=== PATIENT | male | born 1955 | race Caucasian/White ===

== ENCOUNTER → 2017-05-22 | Outpatient (CLI) | payer MEDICARE | LOC: GOCC 20:43 | PROVIDERS: ATTEND Internal Medicine | DX: D64.9 Anemia, unspecified (principal) ==

== ENCOUNTER 2017-05-26 07:58 | Emergency (ER) | payer MEDICARE ==
--- NOTE | 2017-05-26 08:13 | ED.PDOC ---
History of Present Illness - General Chief Complaint: Laceration Stated Complaint: laceration to left lower leg-won't stop bleeding Time Seen by Provider: 05/26/17 08:06 Source: patient, EMS notes reviewed Exam Limitations: no limitations Additional Information: 62 YEAR OLD BROUGHT HERE FOR EVALUATION OF BLEEDING FROM A LACERATION THAT STARTED LAST EVENING AFTER HE BUMPED HIS LEFT LOWER LEG ON THE DOOR WHILE EXITING [place] HE HAS MULTIPLE MEDICAL ISSUES THAT INCLUDES CAD ATRIAL FIBRILLATION ON COUMADIN OXYGEN DEPENDANT COPD HTN PERIPHERAL NEUROPATHY - History of Present Illness Initial Comments: 12 HOURS Improving Factors: nothing Worsening Factors: nothing Associated Symptoms: denies symptoms Allergies/Adverse Reactions: Allergies Lisinopril Allergy (Verified 05/26/17 08:16) Sulfamethoxazole w/Trimethoprim [From Bactrim] Allergy (Verified 05/26/17 08:16) Ticlopidine Allergy (Verified 05/26/17 08:16) Home Medications: Ambulatory Orders Acetaminophen [Tylenol] 325 mg PO Q6H PRN 05/26/17 Allopurinol [Zyloprim] 100 mg PO DAILY 05/26/17 Alum & Mag Hydrox-Simethicone [Maalox Advanced Maximum S 400-400-40 mg/5Ml] 1 donovan PO TID PRN 05/26/17 Amiodarone HCl 200 mg PO DAILY 05/26/17 Atorvastatin Calcium [Lipitor] 40 mg PO BEDTIME 05/26/17 Bisacodyl Suppository 10Mg [Dulcolax Suppository 10mg] 1 ea [place] DAILY PRN Budesonide (Inhalation) [Pulmicort] 0.5 mg IN BID 05/26/17 Carvedilol 3.125 mg PO BID 05/26/17 Chlorhexidine Gluconate (Mouth [Chlorhexidine Gluconate] 0.12 % MT BID 05/26/17 Clonidine HCl 0.1 mg PO BEDTIME 05/26/17 Docusate Sodium 100 mg PO BID PRN 05/26/17 Famotidine 20 mg PO BEDTIME 05/26/17 Ferrous Sulfate 325 mg PO BID 05/26/17 Fluticasone Propionate (Nasal) [Flonase] 2 inh NA DAILY PRN 05/26/17 Folic Acid 1 mg PO DAILY 05/26/17 Furosemide 40 mg PO BID 05/26/17 HYDROcodone 5MG/APAP 325MG [[place] 5/325] 1 - 2 tab PO Q4H PRN 05/26/17 Insulin Lispro (Human) [Humalog] 300 unit SC BEDTIME 05/26/17 Insulin Lispro (Human) [Humalog] 300 unit SC TIDFD 05/26/17 Ipratropium/Albuterol [Duoneb] 3 ml INH Q6H 05/26/17 Levothyroxine Sodium 25 mcg PO DAILY 05/26/17 Melatonin 3 mg PO BEDTIME PRN 05/26/17 Metoprolol Succinate [Metoprolol Succinate ER] 12.5 mg PO DAILY 05/26/17 Multiple Vitamin [Multivitamins] 1 cap PO DAILY 05/26/17 Ondansetron [Ondansetron Odt] 4 mg PO Q4H PRN 05/26/17 Pantoprazole Sodium 40 mg PO DAILY 05/26/17 Phenol Throat [place] [Chloraseptic Throat [place]] 1 - 2 spray MT Q2H PRN 05/26/17 Polyethylene Glycol 3350 [Miralax] 17 gm PO DAILY PRN 05/26/17 Senna/Docusate Tab [Senokot-S] 2 ea PO BID 05/26/17 Sennosides 8.6MG [Senokot] 1 ea PO BID PRN 05/26/17 Tamsulosin [Flomax] 0.4 mg PO DAILY 05/26/17 Thiamine HCl 100 mg PO DAILY 05/26/17 Tramadol HCl 100 mg PO Q6H PRN 05/26/17 Warfarin Sodium [Coumadin] 2.5 mg PO DAILY 05/26/17 Review of Systems - Review of Systems Constitutional: States: no symptoms reported EENTM: States: no symptoms reported Respiratory: States: short of breath Cardiology: States: no symptoms reported Gastrointestinal/Abdominal: States: no symptoms reported Genitourinary: States: no symptoms reported Musculoskeletal: States: no symptoms reported Skin: States: no symptoms reported Neurological: States: no symptoms reported Endocrine: States: no symptoms reported Hematologic/Lymphatic: States: no symptoms reported Family Medical History - Family History Mother Family History: Unknown Physical Exam - Physical Exam General Appearance: Alert Eye Exam: bilateral normal Ears, Nose, Throat: hearing grossly normal, normal ENT inspection, normal pharynx, abnormal TM (R) Neck: non-tender, full range of motion, supple Respiratory: chest non-tender, lungs clear, rhonchi Cardiovascular/Chest: irregularly irregular - 2 + EDEMA Departure - Departure Clinical Impression: Laceration, Anemia Time of Disposition: 09:29 Disposition: Discharge to Home or Self Care Condition: Good Departure Forms: ED Discharge - Pt. Copy, Patient Portal Self Enrollment Instructions: DI for Laceration Repair Activity: increase activity as tolerated Home Medications: Ambulatory Orders Acetaminophen [Tylenol] 325 mg PO Q6H PRN 05/26/17 Allopurinol [Zyloprim] 100 mg PO DAILY 05/26/17 Alum & Mag Hydrox-Simethicone [Maalox Advanced Maximum S 400-400-40 mg/5Ml] 1 donovan PO TID PRN 05/26/17 Amiodarone HCl 200 mg PO DAILY 05/26/17 Atorvastatin Calcium [Lipitor] 40 mg PO BEDTIME 05/26/17 Bisacodyl Suppository 10Mg [Dulcolax Suppository 10mg] 1 ea [place] DAILY PRN Budesonide (Inhalation) [Pulmicort] 0.5 mg IN BID 05/26/17 Carvedilol 3.125 mg PO BID 05/26/17 Chlorhexidine Gluconate (Mouth [Chlorhexidine Gluconate] 0.12 % MT BID 05/26/17 Clonidine HCl 0.1 mg PO BEDTIME 05/26/17 Docusate Sodium 100 mg PO BID PRN 05/26/17 Famotidine 20 mg PO BEDTIME 05/26/17 Ferrous Sulfate 325 mg PO BID 05/26/17 Fluticasone Propionate (Nasal) [Flonase] 2 inh NA DAILY PRN 05/26/17 Folic Acid 1 mg PO DAILY 05/26/17 Furosemide 40 mg PO BID 05/26/17 HYDROcodone 5MG/APAP 325MG [[place] 5/325] 1 - 2 tab PO Q4H PRN 05/26/17 Insulin Lispro (Human) [Humalog] 300 unit SC BEDTIME 05/26/17 Insulin Lispro (Human) [Humalog] 300 unit SC TIDFD 05/26/17 Ipratropium/Albuterol [Duoneb] 3 ml INH Q6H 05/26/17 Levothyroxine Sodium 25 mcg PO DAILY 05/26/17 Melatonin 3 mg PO BEDTIME PRN 05/26/17 Metoprolol Succinate [Metoprolol Succinate ER] 12.5 mg PO DAILY 05/26/17 Multiple Vitamin [Multivitamins] 1 cap PO DAILY 05/26/17 Ondansetron [Ondansetron Odt] 4 mg PO Q4H PRN 05/26/17 Pantoprazole Sodium 40 mg PO DAILY 05/26/17 Phenol Throat [place] [Chloraseptic Throat [place]] 1 - 2 spray MT Q2H PRN 05/26/17 Polyethylene Glycol 3350 [Miralax] 17 gm PO DAILY PRN 05/26/17 Senna/Docusate Tab [Senokot-S] 2 ea PO BID 05/26/17 Sennosides 8.6MG [Senokot] 1 ea PO BID PRN 05/26/17 Tamsulosin [Flomax] 0.4 mg PO DAILY 05/26/17 Thiamine HCl 100 mg PO DAILY 05/26/17 Tramadol HCl 100 mg PO Q6H PRN 05/26/17 Warfarin Sodium [Coumadin] 2.5 mg PO DAILY 05/26/17
[2017-05-26 08:15] VITALS: TEMP 96.7
[2017-05-26 10:45] VITALS: BP 117/58; O2SAT 100
== END 2017-05-26 10:40 | disposition home or self-care (01) ==
LOC: ER 07:58
DX: S81.812A Laceration without foreign body, left lower leg, initial encounter (principal); D64.9 Anemia, unspecified; I25.10 Atherosclerotic heart disease of native coronary artery without angina pectoris; I48.91 Unspecified atrial fibrillation; J44.9 Chronic obstructive pulmonary disease, unspecified; G62.9 Polyneuropathy, unspecified; Z99.81 Dependence on supplemental oxygen; Z79.01 Long term (current) use of anticoagulants; W22.09XA Striking against other stationary object, initial encounter; Y92.511 Restaurant or cafe as the place of occurrence of the external cause

== ENCOUNTER → 2017-08-27 | Outpatient (CLI) | payer MEDICARE | LOC: SL 19:10 | PROVIDERS: ATTEND Emergency Medicine | DX: G47.33 Obstructive sleep apnea (adult) (pediatric) (principal) ==